=== PATIENT | female | born 1995 | race Caucasian/White ===

== ENCOUNTER 2016-05-18 20:03 | Emergency (ER) | payer OTHER ==
[~2016-05-18] VITALS: Ht 165.1 cm; Wt 120.0 kg
[~2016-05-18 20:03] MED LIST: METR500T14 PO; ONDA-43 PO; OXYC5CAP17 PO; PANT40TA4 PO
[2016-05-18 20:30] VITALS: Ht 165.1 cm; Wt 120.0 kg
--- NOTE | 2016-05-18 21:28 | ERD ---
ER Documentation Chief Complaint Date/Time DATE: 05/18/16 TIME: 21:23 Chief Complaint fever, cough x 3 days HPI This pleasant obese 21-year-old female presents to emergency department accompanied by her father with reports of a 3 day history of cough, fever, chills, leg pain, sore throat, patient denies nausea, vomiting, or nasal congestion. She has been treating herself with [id number] DayQuil and NyQuil with little relief of symptoms. Patient reports body aches that are severe, states her legs are "so painful I cannot stand it". Patient denies any recent travel, or injury to her legs. Patient denies dysuria, back pain, diarrhea, or constipation. ROS All systems reviewed and are negative except as per history of present illness. Medications Home Meds Active Scripts Metronidazole* (Metronidazole*) 500 Mg Tablet, 500 MG PO TID, #30 TAB Prov:MANUEL MAGALLON MD 09/06/14 Pantoprazole (Protonix) 40 Mg Tabec, 40 MG PO DAILY, #30 TAB Prov:MANUEL MAGALLON MD 09/06/14 Ondansetron Hcl* (Zofran*) 4 Mg Tab, 4 MG PO Q4H Y for NAUSEA AND OR VOMITING, # 60 TAB Prov:MANUEL MAGALLON MD 09/06/14 Oxycodone Hcl* (IR) (Oxycodone Hcl*) 5 Mg Capsule, 5 MG PO Q4H Y for PAIN, #30 CAP Prov:MANUEL MAGALLON MD 09/06/14 Allergies Allergies: Coded Allergies: No Known Allergy (Unverified , 09/03/14) PMhx/Soc History of Surgery: Yes (gallbladder removal) Anesthesia Reaction: No Hx Neurological Disorder: No Hx Respiratory Disorders: No Hx Cardiac Disorders: No Hx Psychiatric Problems: No Hx Miscellaneous Medical Probl: No Hx Alcohol Use: No Hx Substance Use: No Hx Tobacco Use: No Physical Exam Vitals Vital Signs Date Time Temp Pulse Resp B/P Pulse Ox O2 Delivery O2 Flow Rate FiO2 05/18/16 20:30 100.8 98 18 109/61 97 Vitals stable, triage notes reviewed Physical Exam Const: No acute distress Head: Atraumatic Eyes: Normal Conjunctiva, no pallor, no jaundice, EOMI, PERRLA ENT: Bilateral tympanic membranes are erythemic, nasal mucosa is erythemic, edematous +2 with mucus, nasal septum midline without bleeding points, pharynx bright angry red, thick white mucus noted posteriorly, geographic tongue, uvula rises and falls with pronation. Neck: Full range of motion..~ No meningismus. No cervical chain nodes Resp: Chest rises and falls symmetrically, clear to auscultation bilaterally, no rales wheezes or rhonchi Cardio: Regular rate and rhythm, no murmurs Abd: Soft, non tender, non distended. Normal bowel sounds Skin: No petechiae or rashes Back: Ext: No cyanosis, or edema peripheral pulses intact bilaterally PT +2 Neur: Awake and alert Psych: Normal Mood and Affect Results 24 hrs Current Medications Medications (Trade) Dose Ordered Sig/Manuel Route PRN Reason Start Time Stop Time Status Last Admin Dose Admin Acetaminophen/ Hydrocodone Bitart (Powers (5/325)) 1 tab ONCE ONCE PO 05/18/16 22:00 05/18/16 22:01 DC 05/18/16 21:57 Ibuprofen (Motrin) 600 mg ONCE ONCE PO 05/18/16 22:00 05/18/16 22:01 DC 05/18/16 21:57 Procedures/MDM TIME: [id number] [place] [address] Rajiv Granado M.D. [employer] CHARLINE#: [id number] Name: JOSE ROBERTO MISHRA Age/Sex: 21/F Attend Dr: MARGARITO BROWN MD Acct: [id number] MR# : [id number] : 1995 Location: [facility] Admit: 05/18/16 Specimen: [id number] Status: Complete Lucia: 05/18/16 Rcvd: 05/18 Source: TR[facility] Sp Descrip: Procedure Result Microbiology INFLUENZA A & B BY EIA Final INFLU A&B BY EIA INFLUENZA A NEGATIVE (Ref Range Neg) INFLUENZA B NEGATIVE (Ref Range Neg) Name: JOSE ROBERTO MISHRA Age/Sex: 21/F Attend Dr: MARGARITO BROWN MD Acct: [id number] MR# : [id number] : 1995 Location: [facility] Admit: 05/18/16 Specimen: [id number] Status: Complete Lucia: 05/18/16 Rcvd: 05/18 Source: THROAT Sp Descrip: Procedure Result Microbiology RAPID STREP ANTIGEN BY EIA Final RAPID STREP ANTIGEN ,EIA NEGATIVE (Ref Range Neg) This pleasant 21-year-old female presents to emergency department with body aches, fever, sore throat, and cough. Patient has been symptomatic for 3 days. Patient reports that body aches and leg cramping is the worst symptom. Temperature in exam room is 100.8. Pulse is 98 bpm. Patient does not appear ill her skin is hot, diaphoretic, strep pharyngitis versus influenza. Microbiology results both negative for evidence of infection. There is practitioner toxin patient for second assessment. Patient is no longer diaphoretic, reports that she is more comfortable but has left leg pain from her knee down to her foot. Patient reports pain with rest not with ambulating. Pain is reported chronic for the last 8 months. Patient has risk factors for claudication. Family history of osteoarthritis. Nurse practitioner discussed plan. Patient will be discharged home on pain medication instructed to follow- up with primary care physician for chronic lower extremity pain. Patient will continue to treat fever with Tylenol and Motrin, okay to use [id number] DayQuil and NyQuil. Increase fluids, increase rest, return to emergency for worsening of symptoms, fever not responding to medication. Leg pain swelling difficulty ambulating. I feel the patient is stable for discharge at this time. I have discussed results, examination findings, the treatment plan with the patient and family present prior to discharge. Indications for emergent reevaluation, side effects of medication were also discussed. All questions were answered. Patient verbalizes understanding and agrees with plan of care. Departure Condition: Good Patient Instructions: Viral Syndrome (Adult) Comments Thank you for for coming to [facility] for your care today. Please ask your nurse or provider if you have questions about your care today and do not leave until all your questions have been answered. Please use any medications given as directed and follow-up with your doctor (or the doctor you were referred to) in the next 2-3 days. If you do not have a primary care doctor you may follow up at the [facility] (listed below). You may also use motrin and tylenol as needed for fever and/or pain unless instructed otherwise by your provider or nurse. Indications for more urgent follow-up have been discussed, but you may return to the Emergency Department at ANY time for any worrisome or worsening symptoms. If you have abdominal pain, please know that no test or exam you received is perfect and you should follow up within 8 hours for continued pain. If you had any imaging studies today, such as an X-Ray or CT Scan, these studies will be reviewed later by a radiologist. You will be called if there are important findings that were not identified today, so make sure the contact information you provided at registration is correct. If you received any narcotic pain control medicine today, such as Vicodin, Morphine or Dilaudid, your coordination and judgment may be affected for a number of hours. Please do not drive or operate heavy machinery, and you may want someone to assist you at home. If you were given a prescription for narcotic medication, be aware that it is very addictive- use sparingly and only if necessary. JUSTIN ZACARIAS May 18, 2016 21:28
[2016-05-18] MEDS ORDERED: IBUPROFEN 600 MG TAB PO ONE (22:00)
[2016-05-18] MEDS ORDERED: HYDROCODONE/APAP (5/325) TAB PO ONE (22:00)
[2016-05-18] MEDS ORDERED: IBUP-1542 PO (23:54)
[2016-05-18] MEDS ORDERED: HYDR-906 PO (23:54)
[2016-05-19 00:11] VITALS: BP 114/66; PULSE 106; RESP 16; TEMP 97.7
== END 2016-05-19 00:11 | disposition home or self-care (01) ==
LOC: FTE 20:03
DX: R50.9 Fever, unspecified (principal); R05 Cough; J02.9 Acute pharyngitis, unspecified; M79.606 Pain in leg, unspecified
CPT/HCPCS: 87400; 87880; Z7502; Z7610; 99283